=== PATIENT | female | born 1985 | race Caucasian/White ===

== ENCOUNTER 2021-03-12 05:40 | Inpatient (IN) | payer BC, OTHER ==
[2021-03-12 09:09] LABS: BASO % 0.3 % (0-2.0); EOS % 0.1 % (0-4.5); HEMATOCRIT 35.6 % (32.4-45.2); HEMOGLOBIN 12.3 GM/dL (10.7-15.3); LYMPH % 8.3 % (8-40); MCH 31.8 pg (25.7-33.7); MCHC 34.5 g/dl (32.0-36.0); MEAN CELL VOLUME 92.1 fl (80-96); MONO % 5.2 % (3.8-10.2); NEUT % 86.1 % (42.8-82.8); PLATELET COUNT 159 K/MM3 (134-434); RBC 3.86 M/mm3 (3.60-5.2); RDW 13.1 % (11.6-15.6); WHITE BLOOD COUNT 10.9 K/mm3 (4.0-10.0)
[2021-03-12 09:18] LABS: INR 0.92 (0.83-1.09); PROTHROMBIN TIME (PATIENT) 11.3 SEC (9.7-13.0)
[2021-03-12 09:21] LABS: ACTIVATED PTT 26.1 SECONDS (25.2-36.5)
[2021-03-12 09:25] LABS: CALCIUM 8.3 mg/dL (8.5-10.1)
[2021-03-12 09:26] LABS: BLOOD UREA NITROGEN 10.6 mg/dL (7-18)
[2021-03-12 09:29] LABS: CREATININE 0.9 mg/dL (0.55-1.3)
[2021-03-12] MEDS ORDERED: ELECTROLYTE-148 SOLN 1,000 ML IV SCH (09:30)
[2021-03-12] MEDS ORDERED: OXYTOCIN 30 UNITS in 0.9% NS 30 UNIT/500 ML INFUS.BAG IVPB SCH (09:45)
[2021-03-12 10:35] LABS: HIV INTERPRETATION NEGATIVE (NEGATIVE)
[2021-03-12] MEDS ORDERED: OXYTOCIN 30 UNITS in 0.9% NS 30 UNIT/500 ML INFUS.BAG IVPB ONE (10:37)
[2021-03-12 10:42] VITALS: BMI 30.9
[2021-03-12] MEDS: VANCOMYCIN 1,000 MG in DEXTROSE 5%-WATER - 250 ML IVPB SCH ×2 (11:00→18:30)
[2021-03-12] MEDS ORDERED: NALOXONE HCL 0.4 MG/ML VIAL IVPUSH PRN (13:07)
[2021-03-12] MEDS ORDERED: FENTANYL/BUPIVACAINE/NS/PF - PCEA - 50 ML DISP.SYRIN EP ONE ×2 (13:08→18:13)
[2021-03-12] MEDS ORDERED: FENTANYL/BUPIVACAINE/NS/PF - PCEA - 50 ML DISP.SYRIN EP SCH (13:15)
[2021-03-12] MEDS ORDERED: BUPIVACAINE HCL/PF 0.25% (2.5MG/ML) 10 ML VIAL ONE (13:17)
[2021-03-12] MEDS ORDERED: OXYTOCIN 20 UNITS in 0.9% NS 20 UNIT/1,000 ML INFUS.BAG IV ONE ×2 (20:52→22:04)
[2021-03-12] MEDS ORDERED: CITRIC ACID/SODIUM CITRATE 30 ML UNIT-DOSE CUP PO ONE (21:48)
[2021-03-12] MEDS ORDERED: LIDOCAINE HCL/EPINEPHRINE/PF 10 ML VIAL ONE (22:03)
[2021-03-12] MEDS ORDERED: morphine SULFATE/PF 0.5 MG/ML (2cc Syringe - QUVA) ONE (22:49)
[2021-03-12] MEDS ORDERED: DEXAMETHASONE SOD PHOSPHATE 4 MG/1 ML VIAL ONE (23:02)
[2021-03-12] MEDS ORDERED: METOCLOPRAMIDE HCL INJECTION 10 MG/2 ML VIAL ONE (23:02)
[2021-03-12] MEDS ORDERED: ONDANSETRON 4 MG/2 ML VIAL ONE (23:02)
[2021-03-12] MEDS ORDERED: KETOROLAC TROMETHAMINE 30 MG/1 ML VIAL ONE (23:02)
[2021-03-12] MEDS ORDERED: IBUPROFEN 800 MG/8 ML IJ IVPB PRN (23:17)
[2021-03-12] MEDS ORDERED: BENZOCAINE 20% 57 GM BOTTLE TP PRN (23:17)
[2021-03-12] MEDS ORDERED: WITCH HAZEL 50% (TUCKS) 40 PAD/JAR PAD TP PRN (23:17)
[2021-03-12] MEDS ORDERED: METHYLERGONOVINE MALEATE 0.2 MG/1 ML AMP IM PRN (23:17)
[2021-03-12] MEDS ORDERED: BENZOCAINE 28 GM HEMORRHOIDAL OINTMENT RC PRN (23:17)
[2021-03-12] MEDS ORDERED: oxyCODONE HCL 5 MG TABLET PO PRN (23:17)
[2021-03-12] MEDS ORDERED: diphenhydrAMINE HCL 25 MG CAPSULE (FP) PO PRN (23:17)
[2021-03-12] MEDS ORDERED: ONDANSETRON 4 MG/2 ML VIAL IVPUSH PRN (23:27)
[2021-03-12] MEDS ORDERED: OXYTOCIN 20 UNITS in 0.9% NS 20 UNIT/1,000 ML INFUS.BAG IV SCH (23:30)
[2021-03-12] MEDS ORDERED: DEXTROSE 5%-LACTATED RINGERS 1,000 ML IV SCH (23:30)
[2021-03-13 00:51] LABS: CORD BASE EXCESS -1.9 mmol/L (0-2); CORD HCO3 25.6 mmHg (20-29); CORD HCO3 26.9 mmHg (20-29); CORD PCO2 53.8 mmHg (30-78); CORD PCO2 64.4 mmHg (30-78); CORD pH 7.238 (7.14-7.44); CORD pH 7.296 (7.14-7.44)
[2021-03-13] MEDS: VANCOMYCIN 1,000 MG in DEXTROSE 5%-WATER - 250 ML IVPB SCH (02:26)
[2021-03-13 07:10] LABS: BASO % 0.1 % (0-2.0); HEMATOCRIT 31.4 % (32.4-45.2); HEMOGLOBIN 10.6 GM/dL (10.7-15.3); LYMPH % 2.6 % (8-40); MCH 31.4 pg (25.7-33.7); MCHC 33.7 g/dl (32.0-36.0); MEAN CELL VOLUME 93.1 fl (80-96); MEAN PLT VOLUME 10.4 fl (7.5-11.1); MONO % 4.3 % (3.8-10.2); PLATELET COUNT 130 K/MM3 (134-434); RBC 3.37 M/mm3 (3.60-5.2); RDW 13.2 % (11.6-15.6); WHITE BLOOD COUNT 18.4 K/mm3 (4.0-10.0)
[2021-03-13] MEDS: ENOXAPARIN NA (PORCINE) 40 MG/0.4 ML DISP.SYRIN SQ SCH (09:35)
[2021-03-13 10:25] LABS: ANISOCYTOSIS 0; MACROCYTOSIS 0; PLATELET ESTIMATE DECREASED
[2021-03-13] MEDS: ACETAMINOPHEN 325 MG TABLET (FP) PO PRN (12:26)
[2021-03-13] MEDS: SIMETHICONE 80 MG TAB.CHEW (FP) PO PRN ×2 (12:26→20:29)
[2021-03-13] MEDS: IBUPROFEN 600 MG TABLET (FP) PO PRN ×2 (12:26→20:29)
[2021-03-13] MEDS: oxyCODONE HCL 5 MG TABLET PO PRN (20:30)
[2021-03-13] MEDS ORDERED: BISACODYL 10 MG SUPP.RECT PR PRN (23:17)
[2021-03-14] MEDS: oxyCODONE HCL 5 MG TABLET PO PRN ×2 (09:24→16:54)
[2021-03-14] MEDS: ACETAMINOPHEN 325 MG TABLET (FP) PO PRN (09:25)
[2021-03-14] MEDS: SIMETHICONE 80 MG TAB.CHEW (FP) PO PRN ×2 (09:26→16:58)
[2021-03-14] MEDS: ENOXAPARIN NA (PORCINE) 40 MG/0.4 ML DISP.SYRIN SQ SCH (09:26)
[2021-03-14] MEDS: IBUPROFEN 600 MG TABLET (FP) PO PRN (16:55)
[2021-03-14] MEDS ORDERED: SENNOSIDES/DOCUSATE COMBO (SENNA PLUS) TABLET (UD) PO PRN (22:00)
[2021-03-15 08:18] LABS: BASO % 0.2 % (0-2.0); EOS % 0.7 % (0-4.5); HEMATOCRIT 32.5 % (32.4-45.2); HEMOGLOBIN 11.1 GM/dL (10.7-15.3); MCH 31.9 pg (25.7-33.7); MCHC 34.1 g/dl (32.0-36.0); MEAN CELL VOLUME 93.7 fl (80-96); MEAN PLT VOLUME 10.1 fl (7.5-11.1); MONO % 4.9 % (3.8-10.2); NEUT % 73.2 % (42.8-82.8); PLATELET COUNT 153 K/MM3 (134-434); RBC 3.47 M/mm3 (3.60-5.2); RDW 13.2 % (11.6-15.6); WHITE BLOOD COUNT 6.6 K/mm3 (4.0-10.0)
[2021-03-15] MEDS: oxyCODONE HCL 5 MG TABLET PO PRN (08:38)
[2021-03-15] MEDS: IBUPROFEN 600 MG TABLET (FP) PO PRN (08:40)
[2021-03-15] MEDS: SIMETHICONE 80 MG TAB.CHEW (FP) PO PRN (08:40)
[2021-03-15] MEDS: ENOXAPARIN NA (PORCINE) 40 MG/0.4 ML DISP.SYRIN SQ SCH (10:37)
[2021-03-15 12:53] VITALS: BP 116/74; PULSE 79; TEMP 98.6
== END 2021-03-15 12:45 | disposition home or self-care (01) | DRG 788 ==
LOC: JDEL 05:40 → JLDR 08:20 → J3W 03-13 01:58
PROVIDERS: ADMIT Obstetrics & Gynecology; ATTEND Obstetrics & Gynecology
PROC: 10D00Z1 Extraction of Products of Conception, Low, Open Approach (ICD-10-PCS; principal; 2021-03-12)
DX: O62.0 Primary inadequate contractions (principal); O48.0 Post-term pregnancy; O99.824 Streptococcus B carrier state complicating childbirth; O77.0 Labor and delivery complicated by meconium in amniotic fluid; Z3A.41 41 weeks gestation of pregnancy; Z37.0 Single live birth; Z88.0 Allergy status to penicillin; Z88.1 Allergy status to other antibiotic agents
CPT/HCPCS: 36415; 36600; 80048; 82803; 85025; 85461; 85610; 85730; 86780; 86850; 86900; 86901; 86999; 87389; 88307-TC; C9803; U0003; U0005

== ENCOUNTER 2023-05-30 07:55 | Inpatient (IN) | payer BC, OTHER ==
[2023-05-30] MEDS ORDERED: CITRIC ACID/SODIUM CITRATE 30 ML UNIT-DOSE CUP PO ONE (08:30)
[2023-05-30] MEDS ORDERED: ELECTROLYTE-148 SOLN 500 ML IV ONE ×2 (08:30→09:00)
[2023-05-30 09:06] VITALS: BMI 29.4
[2023-05-30 10:35] LABS: HIV INTERPRETATION NEGATIVE (NEGATIVE)
[2023-05-30] MEDS ORDERED: FENTANYL CITRATE/PF 50 MCG/ML VIAL ONE (11:15)
[2023-05-30] MEDS ORDERED: morphine SULFATE/PF 1 MG/2 ML (2cc Syringe - QUVA) ONE (11:15)
[2023-05-30] MEDS ORDERED: ONDANSETRON 4 MG/2 ML VIAL ONE (11:17)
[2023-05-30] MEDS ORDERED: ceFAZolin SODIUM 1 GM VIAL ONE (11:17)
[2023-05-30] MEDS: ELECTROLYTE-148 SOLN 1,000 ML IV SCH (12:05)
[2023-05-30] MEDS ORDERED: OXYTOCIN 10 UNITS/ML VIAL ONE (12:16)
[2023-05-30] MEDS ORDERED: KETOROLAC TROMETHAMINE 30 MG/1 ML VIAL ONE (12:22)
[2023-05-30] MEDS ORDERED: WITCH HAZEL 50% (TUCKS) 40 PAD/JAR PAD TP PRN (13:17)
[2023-05-30] MEDS ORDERED: IBUPROFEN 800 MG/8 ML IJ IVPB PRN (13:17)
[2023-05-30] MEDS ORDERED: BENZOCAINE 28 GM HEMORRHOIDAL OINTMENT TP PRN (13:17)
[2023-05-30] MEDS ORDERED: ACETAMINOPHEN 325 MG TABLET (FP) PO PRN (13:17)
[2023-05-30] MEDS ORDERED: METHYLERGONOVINE MALEATE 0.2 MG/1 ML AMP IM PRN (13:17)
[2023-05-30] MEDS ORDERED: BENZOCAINE 20% 57 GM BOTTLE TP PRN (13:17)
[2023-05-30 14:00] LABS: CORD BASE EXCESS -8.6 mmol/L (0-2); CORD HCO3 20.8 mmHg (20-29); CORD PCO2 59.2 mmHg (30-78); CORD pH 7.163 (7.14-7.44)
[2023-05-30 14:02] LABS: CORD BASE EXCESS -8.1 mmol/L (0-2); CORD HCO3 22.4 mmHg (20-29); CORD PCO2 69.8 mmHg (30-78); CORD pH 7.125 (7.14-7.44)
[2023-05-30] MEDS ORDERED: OXYTOCIN 20 UNITS in 0.9% NS 20 UNIT/1,000 ML INFUS.BAG IV ONE (14:20)
[2023-05-30] MEDS: OXYTOCIN 20 UNITS in 0.9% NS 20 UNIT/1,000 ML INFUS.BAG IV SCH ×2 (14:20→22:22)
[2023-05-31] MEDS ORDERED: oxyCODONE HCL 5 MG TABLET PO PRN ×2 (01:17)
[2023-05-31 07:02] LABS: BASO % 0.2 % (0-2.0); EOS % 0.1 % (0-4.5); HEMATOCRIT 29.3 % (32.4-45.2); HEMOGLOBIN 9.6 GM/dL (10.7-15.3); LYMPH % 9.7 % (8-40); MCH 28.2 pg (25.7-33.7); MCHC 32.7 g/dl (32.0-36.0); MEAN CELL VOLUME 86.2 fl (80-96); MEAN PLT VOLUME 9.8 fl (7.5-11.1); MONO % 7.3 % (3.8-10.2); NEUT % 82.7 % (42.8-82.8); PLATELET COUNT 148 10^3/uL (134-434); WHITE BLOOD COUNT 9.5 K/mm3 (4.0-10.0)
[2023-05-31] MEDS: PRENATAL VITAMINS W/ FOLIC ACID TABLET (FP) PO SCH (10:45)
[2023-05-31] MEDS: IBUPROFEN 600 MG TABLET (FP) PO PRN (13:08)
[2023-05-31] MEDS ORDERED: BISACODYL 10 MG SUPP.RECT RC PRN (13:17)
[2023-05-31] MEDS: SIMETHICONE 80 MG TAB.CHEW (FP) PO PRN (18:12)
[2023-05-31] MEDS: SENNOSIDES/DOCUSATE COMBO (SENNA PLUS) TABLET (UD) PO PRN (20:28)
[2023-05-31 22:54] VITALS: RESP 18
[2023-06-01] MEDS: IBUPROFEN 600 MG TABLET (FP) PO PRN ×2 (01:49→12:16)
[2023-06-01] MEDS: SIMETHICONE 80 MG TAB.CHEW (FP) PO PRN ×2 (01:49→21:17)
[2023-06-01] MEDS: OXYTOCIN 20 UNITS in 0.9% NS 20 UNIT/1,000 ML INFUS.BAG IV SCH (08:00)
[2023-06-01] MEDS: ELECTROLYTE-148 SOLN 1,000 ML IV SCH ×2 (08:00→11:15)
[2023-06-01] MEDS: FERROUS SO4 325 MG TABLET (FP) PO SCH ×2 (10:00→18:10)
[2023-06-01] MEDS: PRENATAL VITAMINS W/ FOLIC ACID TABLET (FP) PO SCH (10:00)
[2023-06-01] MEDS: BACITRACIN ZINC 15 GM TUBE TOPICAL OINTMENT TP SCH ×2 (21:00)
[2023-06-01] MEDS: SENNOSIDES/DOCUSATE COMBO (SENNA PLUS) TABLET (UD) PO PRN (21:17)
[2023-06-02] MEDS: IBUPROFEN 600 MG TABLET (FP) PO PRN (02:16)
[2023-06-02] MEDS: BACITRACIN ZINC 15 GM TUBE TOPICAL OINTMENT TP SCH (06:12)
[2023-06-02 07:40] LABS: BASO % 0.7 % (0-2.0); EOS % 1.3 % (0-4.5); HEMOGLOBIN 10.9 GM/dL (10.7-15.3); LYMPH % 21.3 % (8-40); MCH 27.7 pg (25.7-33.7); MCHC 32.1 g/dl (32.0-36.0); MEAN CELL VOLUME 86.3 fl (80-96); MONO % 6.3 % (3.8-10.2); NEUT % 70.4 % (42.8-82.8); PLATELET COUNT 190 10^3/uL (134-434); RBC 3.94 M/mm3 (3.60-5.2); RDW 14.5 % (11.6-15.6); WHITE BLOOD COUNT 6.1 K/mm3 (4.0-10.0)
[2023-06-02 10:23] VITALS: BP 137/72; PULSE 56; TEMP 97.6
[2023-06-02] MEDS: PRENATAL VITAMINS W/ FOLIC ACID TABLET (FP) PO SCH (10:24)
[2023-06-02] MEDS: FERROUS SO4 325 MG TABLET (FP) PO SCH (10:24)
== END 2023-06-02 14:05 | disposition home or self-care (01) | DRG 788 ==
LOC: JLDR 07:55 → J3W 14:20
PROVIDERS: ADMIT Obstetrics & Gynecology; ATTEND Obstetrics & Gynecology
PROC: 10D00Z1 Extraction of Products of Conception, Low, Open Approach (ICD-10-PCS; principal; 2023-05-30)
DX: O34.219 Maternal care for unspecified type scar from previous cesarean delivery (principal); Z3A.39 39 weeks gestation of pregnancy; Z37.0 Single live birth
CPT/HCPCS: 36415; 36600; 82803; 85025; 85461; 86850; 86870; 86900; 86901; 86902; 87389; 88307-TC; 94010; J2790